=== PATIENT | female | born 1975 | race Caucasian/White ===

== ENCOUNTER → 2017-04-26 | Outpatient (CLI) | payer BC ==
[~2017-04-26] MED LIST: ACE3 PO; ADV100/50 INH; ADV230RPT INH; ADV250/50 INH; ALB18R INH; ALBU8.5H12 IH; AUGMENTIN; DOXY-179 PO; FLU44R INH; HYDR-3083 PO; HYDR-4309 PO; IBU800 PO; LEVO-85 PO; METH0.2T PO; METH4TAB66 PO; METO-566 PO; MONT10TA PO; ONDA4TAB PO; PRE20 PO; PRED-1 PO; PRED20TA6 PO; PREN-85 PO
--- NOTE | 2017-04-26 08:57 | RADIOLOGY IMAGING REPORT ---
FACILITY: [facility] [place] PATIENT NAME: Yeni De Anda : 1975 MR: [id number] V: [id number] EXAM DATE: ORDERING PHYSICIAN: CAMERON BLACKBURN TECHNOLOGIST: Location: [facility] Patient: Yeni De Anda : 1975 Visit/Account:[id number] Date of Sevice: 04/26/2017 EXAMINATION: CT of the Paranasal Sinuses HISTORY: Chronic sinus symptoms , nasal polyp TECHNIQUE: CT was performed through the paranasal sinuses without intravenous contrast administratio n. Coronal and sagittal reformatted images were generated. One of the following dose optimization techniques was utilized in the performance of this exam: autom ated exposure control; adjustment of the mA and/or kV according to patient size; or use of iterative reconstruction technique. Specific details can be referenced in the facility's radiology CT exam ope rational policy. COMPARISON: January 06, 2011 FINDINGS: Small new left mastoid effusion. The left maxillary sinuses nearly completely opacified by mucosal thickening. Small amount of aerati on in the left maxillary sinus has increased. Mild right maxillary sinus mucosal thickening has decr eased. Bilateral ethmoid sinus mucosal thickening has decreased. The left aspect of the frontal sin us is completely opacified as before. Right frontal sinus mucosal thickening exhibits increased aera tion compared to prior. Sphenoid sinus mucosal thickening has decreased. Mild unchanged rightward nasal septum deviation. New surgical absence of ethmoid osseous septations and bilateral partial antrectomord and surgically absent middle turbinates and uncinate processes. Focal mucosal thickening versus nasal cavity polyp in the upper right nasal cavity measures 1.3 cm cr aniocaudad, coronal image 41. Additional focal mucosal thickening versus small polyp in the anterior left ethmoid region, axial image 44. Bilateral maxillary sinus and sphenoid wall thickening and sclerosis has increased in the maxillary r egions in keeping with residua of chronic inflammation. The visible extracranial and intracranial structures are normal. Normal temporomandibular joints. IMPRESSION: 1. Paranasal sinus postsurgical change. 2. Diffuse paranasal sinus mucosal thickening/opacification remains but has decreased. 3. Focal areas of mucosal thickening versus small polyps in the right upper nasal cavity and left an terior ethmoid region. 4. Mild unchanged rightward nasal septum deviation. Report Dictated By: Delfino Wilder MD at 04/26/2017 8:43 AM Report E-Signed By: Delfino Wilder MD at 04/26/2017 8:53 AM WSN:[id number]
== END ==
LOC: CT 01:08
PROVIDERS: ATTEND Otolaryngology
DX: J34.89 Other specified disorders of nose and nasal sinuses (principal); J34.2 Deviated nasal septum
CPT/HCPCS: 70486

== ENCOUNTER → 2017-04-27 | Outpatient (CLI) | payer BC | LOC: AUD 08:54 | PROVIDERS: ATTEND Otolaryngology | DX: H66.006 Acute suppurative otitis media without spontaneous rupture of ear drum, recurrent, bilateral (principal) | CPT/HCPCS: 92557; 92570 ==